=== PATIENT | male | born 2000 | race Asian ===

== ENCOUNTER 2019-01-25 22:53 | Emergency (ER) | payer OTHER ==
--- NOTE | 2019-01-26 00:56 | ED ---
Lower Extremity - HPI Summary HPI Summary: Patient complains of "lump" to right medial thigh 2 days. Patient has history of enlarged lymph nodes. Denies fever, cough, sore throat, CP, SOB, as this V/ V abdominal pain, change in urine, change in BM, penile discharge, testicular pain. Medical history is psoriasis. - History of Current Complaint Chief Complaint: EDRashSkinAbscess Stated Complaint: GROIN AREA SWOLLEN/NAUSEA PER PT Time Seen by Provider: 01/26/19 00:16 Hx Obtained From: Patient Mechanism Of Injury: Other Onset of Pain: Days Onset/Duration: Days Severity Currently: None Pain Intensity: 0 Pain Scale Used: 0-10 Numeric Timing: Intermittent Location: Is Discrete @ Character Of Pain: Aching Associated Signs And Symptoms: Positive: Negative Able to Bear Weight: Yes - Allergies/Home Medications Allergies/Adverse Reactions: Allergies Allergy/AdvReac Type Severity Reaction Status Date / Time nuts Allergy Itching Uncoded 02/03/16 18:01 seafood Allergy Itching Uncoded 02/03/16 18:01 Home Medications: Home Medications Triamcinolone 0.5% CREAM(NF) [Triamcinolone 0.5% CREAM*] 1 applic TOPICAL BID [History Confirmed 01/25/19] PMH/Surg Hx/FS Hx/Imm Hx Endocrine/Hematology History: Denies: Hx Anticoagulant Therapy Cardiovascular History: Denies: Hx Pacemaker/ICD History: Denies: Hx Dialysis Sensory History: Denies: Hx Eye Prosthesis Opthamlomology History: Denies: Hx Legally Blind EENT History: Denies: Hx Deafness Neurological History: Denies: Hx Dementia Infectious Disease History: No Infectious Disease History: Denies: Traveled Outside the [place] in Last 30 Days - Family History Known Family History: Positive: Hypertension - Social History Alcohol Use: Rare Substance Use Type: Reports: None Smoking Status (MU): Never Smoked Tobacco Review of Systems Constitutional: Negative Eyes: Negative ENT: Negative Cardiovascular: Negative Respiratory: Negative Gastrointestinal: Negative Genitourinary: Negative Musculoskeletal: Negative Skin: Other Neurological: Negative Psychological: Normal All Other Systems Reviewed And Are Negative: Yes Physical Exam - Summary Physical Exam Summary: Small hard nodule in right medial thigh, tender to palpation. No erythema, ecchymosis, deformity, swelling noted. Triage Information Reviewed: Yes Vital Signs On Initial Exam: Initial Vitals Temp Pulse Resp BP Pulse Ox 99.7 F 64 18 146/93 100 01/25/19 22:59 01/25/19 22:59 01/25/19 22:59 01/25/19 22:59 01/25/19 22:59 Vital Signs Reviewed: Yes Appearance: Positive: Well-Appearing Skin: Positive: Warm Head/Face: Positive: Normal Head/Face Inspection Eyes: Positive: Normal Neck: Positive: Supple Respiratory/Lung Sounds: Positive: Clear to Auscultation Cardiovascular: Positive: Normal Abdomen Description: Positive: Nontender Musculoskeletal: Positive: Normal Neurological: Positive: Normal Psychiatric: Positive: Normal AVPU Assessment: Alert - [place] Coma Scale Best Eye Response: 4 - Spontaneous Best Motor Response: 6 - Obeys Commands Best Verbal Response: 5 - Oriented Coma Scale Total: 15 Procedures - Sedation Patient Received Moderate/Deep Sedation with Procedure: No Diagnostics - Vital Signs Vital Signs Temp Pulse Resp BP Pulse Ox 01/26/19 00:17 160/95 01/26/19 00:00 78 99 01/25/19 23:46 84 140/85 98 01/25/19 23:45 79 99 01/25/19 22:59 99.7 F 64 18 146/93 100 - Laboratory Lab Statement: Any lab studies that have been ordered have been reviewed, and results considered in the medical decision making process. Lower Extremity Course/Dx - Course Course Of Treatment: Patient complains of "lump" to right medial thigh 2 days. Patient has history of enlarged lymph nodes. Denies fever, cough, sore throat , CP, SOB, as this V/V abdominal pain, change in urine, change in BM, penile discharge, testicular pain. Medical history is psoriasis. Vital signs within normal limits. - Diagnoses Provider Diagnoses: Localized enlarged lymph nodes Discharge ED - Sign-Out/Discharge Documenting (check all that apply): Patient Departure - Discharge Plan Condition: Stable Disposition: HOME Prescriptions: Cephalexin CAP* [Keflex CAP*] 500 mg PO QID 7 Days #28 cap Patient Education Materials: Lymphadenopathy (ED) Forms: *School Release Referrals: No Primary Care Phys,NOPCP [Primary Care Provider] - Additional Instructions: Monitor progression of enlarged lymph node. Take antibiotics as directed. Return to the ED for any worsening symptoms. - Billing Disposition and Condition Condition: STABLE Disposition: Home - Attestation Statements Provider Attestation: I was available for consult. This patient was seen by the CORTNEY. The patient was not presented to, seen by, or examined by me. Ravi Cole MD
[2019-01-26 01:14] VITALS: BP 158/94
== END 2019-01-26 01:15 | disposition home or self-care (01) ==
LOC: ED 22:53
DX: R59.0 Localized enlarged lymph nodes (principal)
CPT/HCPCS: 99283